=== PATIENT | male | born 1965 | race Caucasian/White ===

== ENCOUNTER → 2016-11-09 | Outpatient (CLI) | payer BC ==
[~2016-11-09] VITALS: Ht 185.4 cm; Wt 114.3 kg
[~2016-11-09] MED LIST: REGADENOSON 0.4 MG/5 ML DISP.SYRIN. IV ONE
--- NOTE | 2016-11-09 16:54 | RAD ---
APPROVED REPORT Test Type: Pharmacological Stress Nurse/Tech: memo silverman Test Indications: dyspnea Cardiac History: NONE STATED,SEE EHR Medications: SEE EHR Medical History: SMOKER, DIABETIC, SEE EHR Resting ECG: SR Resting Heart Rate: 60 bpm Resting Blood Pressure: 134/86mmHg Pretest Chest Pain: No chest pain Nurse/Tech Notes LUNG SOUNDS CLEAR, S1S2 WNL. Consent: The procedure was explained to the patient in lay terms. Informed consent was witnessed. Hay eout was entered into [employer]. History and Stress Test performed by RT Kamila Lazo) (N) Pharm. Details Pharmacologic stress testing was performed using 0.4mg per 5ml of regadenoson given intravenously ove r 7-10 seconds. Stress Symptoms NONE STATED. POST EXERCISE Max HR: 96 bpm Max Blood Pressure: 163/79mmHg Chest Pain: No. Arrhythmia: No. ST Change: No. INTERPRETATION Stress EKG Conclusion: Baseline EKG showed sinus rhythm. No ischemic changes at peak stress. No arr hythmias. Imaging Protocol IMAGE PROTOCOL: Rest Tc-99m/stress Tc-99m 1 day Rest: Stress: Viability: Radiopharm.Tc99m XnjbgnjbdPd43l Sestamibi Dose13.3mCi 33mCi Img Date 11/09/2016 11/09/2016 Inj-Img [id number]. 75min. Rest Admin Site:IV - Left AntecubitalAdministrator:VIKTORIYA Saravia Stress Admin Site: IV - Left AntecubitalAdministrator: RT Violet (R)(N) STRESS DATA End Diast. Vol.131.0mlAv. Heart Rate69.0bpm End Syst. Vol.33.0mlCO Index BSA0.0L/min Myocardial Bnos812.0gEject. Rorgxrmt13.0% Stress Rates Pk. Fill Rate3.01EDV/secLVtime Pk. Fill 157.77msec Pk. Empty Rate3.88ESV/secLVtime Pk. Pjkar671.44msec 1/3 Pk. Fill1.91EDV/sec Stress Scores Regional WT0.00Summed WT0.00 Regional WM0.00Summed WM0.00 Study quality was good. Left Ventricular size was Normal at Rest and Stress. Lung uptake was Normal. Left Ventricular ejection fraction is 75%. The rest and stress images show normal perfusion, normal contraction and thickening. LV Perf. Quant 17 Seg. SSS0.00 17 Seg. SRS0.00 17 Seg. SDS0.00 Stress Defect Extent (% LAD)0.00Rest Defect Extent (% LAD)0.00Rev. Defect Extent (% LAD)0.00 Stress Defect Extent (% LCX) 5.00Rest Defect Extent (% LCX)0.00Rev. Defect Extent (% LCX)1.30 Stress Defect Extent (% RCA)0.00Rest Defect Extent (% RCA)0.00Rev. Defect Extent (% RCA)0.00 Stress Defect Extent (% MADY)0.90Rest Defect Extent (% MADY)0.00Rev. Defect Extent (% MADY)0.20 Conclusion 1. Regadenoson cardioisotope stress test did not show any evidence of ischemia or infarct. 2. Normal left ventricular systolic function with ejection fraction calculated at 75%. 3. Low risk for cardiac events.
== END | disposition home or self-care (01) ==
LOC: NM 08:06 → EDUNIT# 09:00
PROVIDERS: ATTEND Physician Assistant
DX: R06.09 Other forms of dyspnea (principal)
CPT/HCPCS: 78452; 93017; 96374; 96375; 96376; A9500; J2785

== ENCOUNTER → 2016-11-18 | Outpatient (CLI) | payer BC ==
[~2016-11-18] MED LIST changes: +IOHEXOL 300 MG/ML 75 ML VIAL IV ONE; -REGADENOSON 0.4 MG/5 ML DISP.SYRIN. IV ONE
--- NOTE | 2016-11-18 08:41 | RAD ---
CTA of the chest with contrast (pulmonary embolism protocol) 11/18/2016 Clinical History: Shortness of breath. History of DVT.. Technique: After the intravenous administration of 75 mL of Isovue-370, contiguous, 2 mm axial sections were obtained through the chest. 3-D MIP coronal and sagittal reconstructed images were obtained. One or more of the following individualized dose reduction techniques were utilized for this study: 1. Automated exposure control. 2. Adjustment of the mA and/or kV according to patient size. 3. Use of iterative reconstruction technique. Findings: No filling defects are seen within the major branches of either pulmonary artery. The heart is normal in size. Scattered atherosclerotic plaque formation is seen throughout the thoracic aorta. The thoracic aorta is tortuous but tapers normally. Slightly prominent likely reactive mediastinal lymph nodes are seen. Small areas of scarring are seen involving the apices of both lungs. No area of consolidation is seen. No pneumothorax or pleural effusion is noted. No pneumothorax or pleural effusion is noted. Impression: There is no CT evidence of pulmonary embolism.
== END | disposition home or self-care (01) ==
LOC: CT 06:56
PROVIDERS: ATTEND Physician Assistant
DX: I70.0 Atherosclerosis of aorta (principal); Q25.46 Tortuous aortic arch; Z86.711 Personal history of pulmonary embolism
CPT/HCPCS: 71275; Q9967

== ENCOUNTER 2018-08-04 16:08 | Emergency (ER) | payer BC ==
[~2018-08-04] VITALS: Ht 185.4 cm; Wt 93.0 kg
[2018-08-04 16:15] VITALS: BP 137/70
--- NOTE | 2018-08-04 17:00 | PHYS DOC ---
Past Medical History Past Medical History: Asthma, Diabetes-Type II, DVT, Other Additional Past Medical Histor: Two P.E. history's Past Surgical History: Appendectomy Additional Information: / ppd Alcohol Use: Occasionally Drug Use: None Adult General Chief Complaint Chief Complaint: UPPER EXTREMITY PAIN [facility] Patient is a 52 year old medical presents with 6 out of 10 right biceps pain that began at 4:30 AM this morning while he was pulling down his trunk bed. Patient states he believes he tore up his biceps. He states is able to flex the right upper extremity but it's very painful. He states he has taken ibuprofen 800 mg with no relief. Patient states he is already on blood thinners for DVTs. Review of Systems Review of Systems Constitutional: Denies fever or chills [] Eyes: Denies change in visual acuity, redness, or eye pain [] HENT: Denies nasal congestion or sore throat [] Respiratory: Denies cough or shortness of breath [] Cardiovascular: No additional information not addressed in HPI [] GI: Denies abdominal pain, nausea, vomiting, bloody stools or diarrhea [] : Denies dysuria or hematuria [] Musculoskeletal: Reports right biceps. Integument: Denies rash or skin lesions [] Neurologic: Denies headache, focal weakness or sensory changes [] All other systems were reviewed and found to be within normal limits, except as documented in this note. Allergies Allergies Allergies Coded Allergies Type Severity Reaction Last Updated Verified codeine Allergy Mild Itching 08/04/18 Yes Physical Exam Physical Exam Constitutional: Well developed, well nourished, no acute distress, non-toxic appearance. [] HENT: Normocephalic, atraumatic, bilateral external ears normal, oropharynx moist, no oral exudates, nose normal. [] Eyes: PERRLA, EOMI, conjunctiva normal, no discharge. [] Neck: Normal range of motion, no tenderness, supple, no stridor. [] Cardiovascular:Heart rate regular rhythm, no murmur [] Lungs & Thorax: Bilateral breath sounds clear to auscultation [] Abdomen: Bowel sounds normal, soft, no tenderness, no masses, no pulsatile masses. [] Skin: Warm, dry, no erythema, no rash. [] Back: No tenderness, no CVA tenderness. [] Extremities: Right biceps with moderate swelling, there is bruising over the biceps. There is tenderness over the biceps. Patient able to flex the right upper extremity at the elbow that he appears to struggle with this. Adequate radial, medial, ulnar sensation to the right upper extremity. +2 right radial pulse. Neurologic: Alert and oriented X 3, normal motor function, normal sensory function, no focal deficits noted. [] Psychologic: Patient appears intoxicated with alcohol. Current Patient Data Vital Signs Vital Signs Date Time Temp Pulse Resp B/P (MAP) Pulse Ox O2 Delivery O2 Flow Rate FiO2 08/04/18 16:15 98.0 105 20 137/70 (92) 98 Room Air 98.0 EKG EKG [] Radiology/Procedures Radiology/Procedures []PROCEDURE: VENOUS UPPER EXTREMITY RIGHT Right upper extremity venous duplex study 08/04/2018 CLINICAL HISTORY: Right arm swelling. TECHNIQUE: Using a combination real-time ultrasound imaging and color-flow and pulse Doppler imaging techniques along with graded compression and augmentation, duplex evaluation of the major venous structures of the right upper extremity was performed. Multiple images were obtained. FINDINGS: There is no sonographic evidence of venous thrombosis involving the visualized venous structures of the right upper extremity. The right subclavian and right internal jugular veins are patent. Edema and fluid is seen involving the right biceps muscle which likely reflects a tear. Impression: A tear is seen in the region of the right biceps muscle. There is no sonographic evidence of venous thrombosis involving the major venous structures of the right arm. Electronically signed by: Kel Mary MD (08/04/2018 5:55 PM) [facility] DICTATED and SIGNED BY: KEL MARY MD DATE: 08/04/181751 Course & Med Decision Making Course & Med Decision Making Pertinent Labs and Imaging studies reviewed. (See chart for details) This is a 52-year-old male patient presenting to the ED today with right biceps pain, patient believes he toe up his biceps. Unfortunately we are not allowed to do nonemergent MRI in the ED. I venous Doppler as well as x-ray of the right humerus. Patient was in the ED with 2 knives one large on his waist one small in his pocket. I requested security to take them Right humerus xray is negative for any acute findings. Venous Doppler as well as x-ray of the right humerus- A tear is seen in the region of the right biceps muscle. There is no sonographic evidence of venous thrombosis involving the major venous structures of the right arm. Spoke with Dr. Mercado he requested out patient f/u. Sling offered Gave patient results. Informed him i will give him hydrocodone for pain. He states he is allergic to it. I asked patient what happens when he takes hydrocodone, patient states it makes him itch, informed him he can take it with Zyrtec, or Claritin considering he takes Claritin daily he should keep taking it. He stated need to give him something else. Informed patient his injury does not warrant going for oxycodone RX but i will write him some hydrocodone for pain or he can take Tylenol considering he is on a blood thinner and can not take Ibuprofen. I asked him if he has taken any pain medicine before, he goes farther again stating he has taken Lortab before with no issues. Informed patient Lortab, and hydrocodone are the same thing, he states he is 52 years old and knows about pain medicines and Hydrocodone and Lortab are not the same medicines. He states he is living going to a different hospital. He walked away asking for security to get his knife back. Dragon Disclaimer Dragon Disclaimer This electronic medical record was generated, in whole or in part, using a voice recognition dictation system. Departure Departure Impression: Primary Impression: Biceps muscle tear Disposition: 01 HOME, SELF-CARE Condition: STABLE Referrals: ANDI KURTZ MD (PCP) ROSALBA MERCADO MD call his office on Monday and follow up Patient Instructions: Biceps Tendon Disruption (Proximal) with [facility] Additional Instructions: You were evaluated in the emergency room and noted to have biceps tear. We provided you a sling. Try to ice and elevate the extremity. Please follow-up with the provided orthopedic doctor by calling his office on Monday. Scripts Hydrocodone/Acetaminophen (Hydrocodone-Acetamin 7.5-325) 1 Each Tablet 1 EACH PO Q6HRS, #20 TAB Prov: VANI HALL APRN 08/04/18 Problem Qualifiers Primary Impression: Biceps muscle tear Encounter type: initial encounter Laterality: right Qualified Codes: S46.211A - Strain of muscle, fascia and tendon of other parts of biceps, right arm, initial encounter VANI HALL APRN Aug 04, 2018 17:00
--- NOTE | 2018-08-04 17:48 | RAD ---
AP and lateral right humerus radiographs 08/04/2018 CLINICAL HISTORY: Right arm pain post fall. AP and lateral digital radiographs of the right humerus were obtained. No fracture or dislocation of the right humerus is seen. No radiopaque foreign body is noted. IMPRESSION: No fracture or dislocation of the right humerus is seen. Electronically signed by: Kel Mary MD (08/04/2018 5:45 PM) [facility]
--- NOTE | 2018-08-04 17:58 | RAD ---
Right upper extremity venous duplex study 08/04/2018 CLINICAL HISTORY: Right arm swelling. TECHNIQUE: Using a combination real-time ultrasound imaging and color-flow and pulse Doppler imaging techniques along with graded compression and augmentation, duplex evaluation of the major venous structures of the right upper extremity was performed. Multiple images were obtained. FINDINGS: There is no sonographic evidence of venous thrombosis involving the visualized venous structures of the right upper extremity. The right subclavian and right internal jugular veins are patent. Edema and fluid is seen involving the right biceps muscle which likely reflects a tear. Impression: A tear is seen in the region of the right biceps muscle. There is no sonographic evidence of venous thrombosis involving the major venous structures of the right arm. Electronically signed by: Kel Mary MD (08/04/2018 5:55 PM) [facility]
[2018-08-04] MEDS ORDERED: HYDR-2763 PO (18:25)
== END 2018-08-04 18:38 | disposition home or self-care (01) ==
LOC: ER 16:08
DX: S46.211A Strain of muscle, fascia and tendon of other parts of biceps, right arm, initial encounter (principal); J45.909 Unspecified asthma, uncomplicated; E11.9 Type 2 diabetes mellitus without complications; F17.200 Nicotine dependence, unspecified, uncomplicated; F10.129 Alcohol abuse with intoxication, unspecified; Y90.9 Presence of alcohol in blood, level not specified; Z90.89 Acquired absence of other organs; Z86.718 Personal history of other venous thrombosis and embolism; Z88.5 Allergy status to narcotic agent; X50.9XXA Other and unspecified overexertion or strenuous movements or postures, initial encounter; Y93.89 Activity, other specified; Y92.89 Other specified places as the place of occurrence of the external cause; Y99.8 Other external cause status
CPT/HCPCS: 73060; 93971; 99284-25